=== PATIENT | female | born 1995 | race African-American/Black ===

== ENCOUNTER 2017-04-11 05:19 | Inpatient (IN) | payer MEDICAID, OTHER ==
[~2017-04-11] VITALS: Ht 160 cm; Wt 70.0 kg
[2017-04-11] VITALS (11 sets, daily range): BP systolic 97–123; BP diastolic 51–75; PULSE 21–112; RESP 17–21; TEMP 97.6–98.3; O2SAT 97–100
[2017-04-11] MEDS ORDERED: LACTATED RINGER'S 1000 ML INJ 1,000 ML IV SCH ×2 (05:59→14:50)
[2017-04-11] MEDS ORDERED: LACTATED RINGER'S 1000 ML INJ 1,000 ML IV PRN (05:59)
[2017-04-11] MEDS ORDERED: LIDOCAINE HCL 1% 50 ML VIAL I-DERMAL PRN (06:00)
[2017-04-11] MEDS ORDERED: MINERAL OIL 10 ML VIAL TOPICAL PRN (06:00)
[2017-04-11] MEDS ORDERED: OXYTOCIN 30 UNITS-500ML PREMIX 500 ML IV ONE ×2 (06:00→10:30)
[2017-04-11] MEDS ORDERED: SODIUM CHLORID 0.9% 500 ML INJ 500 ML IV PRN (06:00)
[2017-04-11] MEDS ORDERED: CITRIC ACID-SODIUM CITRATE LIQ 30 ML UDC PO SCH (06:00)
[2017-04-11] MEDS ORDERED: LIDOCAINE HCL 1% 50 ML VIAL INFIL PRN (06:00)
--- NOTE | 2017-04-11 06:05 | HHI.HP ---
HPI Chief Complaint Contractions Date Seen: Apr 11, 2017 Time Seen: 05:55 Travel History International Travel<30 Days: No Contact w/Intl Traveler<30Days: No Known Affected Area: No History of Present Illness HPI Patient is 22-year-old black female at 38 weeks with little to no care. She had 2 visits in [place] and maybe one down here, she presents complaining contractions and presents to OB ED 9 cm dilated and incomplete breech presentation Weeks Gestation: 38 Para: 1 : 2 History Obstetric History Obstetric History One vaginal delivery Social History Alcohol Use: No Tobacco Use: No Substance Abuse: No Allergies-Medications (Allergen,Severity, Reaction): Uncoded Allergies: no known allergy (Allergy, Unknown, 04/11/17) Review of Systems General / Constitutional: No: Fever, Weight Gain, Chills, Other Eyes: No: Diploplia, Blurred Vision, Visual changes, Pain, Photophobia HENT: No: Headaches, Vertigo, Lightheadedness Cardiovascular: No: Irregular Rhythm, Chest Pain or Discomfort, Palpitations, Tachycardia, Syncope, Varicosities, Edema, Cyanosis Respiratory: No: Cough, Short of Breath, Other Gastrointestinal: No: Nausea, Vomiting, Diarrhea Genitourinary: No: Decreased Urinary Output, Oliguria Musculoskeletal: No: Limited ROM, Weakness, Cramping, Edema, Pain Skin: No Rash, No Itching, No Dryness, No Lumps, No Change in Pigmentation, No Change in Nails, No Alopecia, No Lesions Neurologic: No: Weakness, Dizziness, Syncope, Focal Abnormalities, Coordination Problem, Headache, Slurred Speech, Seizures Psychiatric: No: Depression, Suicidal Ideations, Homicidal Ideation Endocrine: No: Heat Intolerance, Cold Intolerance, Polydipsia, Polyuria, Other Physical Exam Narrative GENERAL: Well-nourished, well-developed patient. SKIN: Warm and dry. HEAD: Normocephalic and atraumatic. EYES: No scleral icterus. No injection or drainage. ENT: No nasal drainage noted. Mucous membranes pink. Airway patent. NECK: Supple, trachea midline. No JVD. CARDIOVASCULAR: Regular rate and rhythm without murmurs, gallops, or rubs. RESPIRATORY: Breath sounds equal bilaterally. No accessory muscle use. BREASTS: Bilateral exam showed no masses , no retractions, no nipple discharge. ABDOMEN/GI: Abdomen soft, non-tender, bowel sounds present, no rebound, no guarding Gravid to [38-] weeks size Fundal Height: [38-] GENITOURINARY: External Genitalia: intact and normal in appearance BUS glands: [-] Cervix: [9-] Dilatation: [9-] Effacement: [100-] Station: [-1] Presentation: [breech-] Membranes: [intact BBOW] Uterine Contractions: [-reg] FHT's: Category: [1-] Baseline: [133-] Reactive: [R-] Variability: [mod-] Decels: [none-] EXTREMITIES: No cyanosis or edema. BACK: Nontender without obvious deformity. No CVA tenderness. NEUROLOGICAL: Awake and alert. Motor and sensory grossly within normal limits. Five out of 5 muscle strength in all muscle groups. Normal speech. Caprini VTE Risk Assessment Caprini VTE Risk Assessment: No/Low Risk (score <= 1) Caprini Risk Assessment Model Point Value = 1 Point Value = 2 Point Value = 3 Point Value = 5 Age 41-60 Minor surgery BMI > 25 kg/m2 Swollen legs Varicose veins or History of unexplained or recurrent spontaneous Oral contraceptives or hormone replacement Sepsis (< 1 month) Serious lung disease, including pneumonia (< 1 month) Abnormal pulmonary function Acute myocardial infarction Congestive heart failure (< 1 month) History of inflammatory bowel disease Medical patient at bed rest Age 61-74 Arthroscopic surgery Major open surgery (> 45 min) Laparoscopic surgery (> 45 min) Malignancy Confined to bed (> 72 hours) Immobilizing plaster cast Central venous access Age >= 75 History of VTE Family history of VTE Factor V Leiden Prothrombin [id number] Lupus anticoagulant Anticardiolipin antibodies Elevated serum homocysteine Heparin-induced thrombocytopenia Other congenital or acquired thrombophilia Stroke (< 1 month) Elective arthroplasty Hip, pelvis, or leg fracture Acute spinal cord injury (< 1 month) Prophylaxis Regimen Total Risk Factor Score Risk Level Prophylaxis Regimen 0-1 Low Early ambulation 2 Moderate Order ONE of the following: *Sequential Compression Device (SCD) *Heparin 5000 units SQ BID 3-4 Higher Order ONE of the following medications: *Heparin 5000 units SQ TID *Enoxaparin/Lovenox 40 mg SQ daily (WT < 150 kg, CrCl > 30 mL/min) *Enoxaparin/Lovenox 30 mg SQ daily (WT < 150 kg, CrCl > 10-29 mL/min) *Enoxaparin/Lovenox 30 mg SQ BID (WT < 150 kg, CrCl > 30 mL/min) AND/OR *Sequential Compression Device (SCD) 5 or more Highest Order ONE of the following medications: *Heparin 5000 units SQ TID (Preferred with Epidurals) *Enoxaparin/Lovenox 40 mg SQ daily (WT < 150 kg, CrCl > 30 mL/min) *Enoxaparin/Lovenox 30 mg SQ daily (WT < 150 kg, CrCl > 10-29 mL/min) *Enoxaparin/Lovenox 30 mg SQ BID (WT < 150 kg, CrCl > 30 mL/min) AND *Sequential Compression Device (SCD) Data Data Orders Orders Ob (2e) Additional Admit Info (04/11/17 05:51) Admit To Inpatient (04/11/17 ) Vital Signs (Adult) .Per protocol (04/11/17 05:59) Heart (04/11/17 05:59) Amnioinfusion (04/11/17 05:59) Urinary Catheter Management .ONCE (04/11/17 05:59) Lactated Ringer's 1000 Ml Inj (Lr 1000 M (04/11/17 05:59) Lactated Ringer's 1000 Ml Inj (Lr 1000 M (04/11/17 05:59) Sodium Chlorid 0.9% 500 Ml Inj (Ns 500 M (04/11/17 06:00) Sodium Chlor 0.9% 1000 Ml Inj (Ns 1000 M (04/11/17 06:19) Lidocaine 1% Inj (50 Ml) (Xylocaine 1% I (04/11/17 06:00) Citric Acid-Sodium Citrate Liq (Bicitra (04/11/17 06:00) Fentanyl Inj (Fentanyl Inj) (04/11/17 06:00) Fentanyl Inj (Fentanyl Inj) (04/11/17 06:00) Complete Blood Count With Diff (04/11/17 05:59) Hold Clot (04/11/17 05:59) Abo/Rh Blood Type (04/11/17 05:59) Urinalysis - C+S If Indicated (04/11/17 05:59) Drug Screen, Random Urine (04/11/17 05:59) Resp Oxygen Non Rebreathe Mask (04/11/17 ) ^ Epidural / Intrathecal Infus (04/11/17 05:59) Oxytocin 30 Units-500ml Premix (Pitocin (04/11/17 06:00) Lidocaine 1% Inj (50 Ml) (Xylocaine 1% I (04/11/17 06:00) Light Mineral Oil (Muri-Lube Oil) (04/11/17 06:00) Specimen To Be Collected PRN (04/11/17 05:59) Specimen To Be Collected PRN (04/11/17 05:59) Assessment/Plan Assessment and Plan Is a 22-year-old white female at 38 weeks presents and precipitous labor with incomplete breech presentation. Ultrasound shows baby is breech with the head in the position not hyperextended and the baby is probably 7 pounds patient was given the option of a trial vaginal she wants to try and deliver vaginally Plan-proceed with vaginal breech delivery at term Seb Wakefield II, MD Apr 11, 2017 06:05
[2017-04-11 06:08] LABS: AUTOMATED NEUTROPHIL # 6.1 TH/MM3 (1.8-7.7); BASOPHIL % 0.4 % (0.0-2.0); EOSINOPHIL % 0.2 % (0.0-4.0); HEMATOCRIT 31.7 % (35.0-46.0); HEMOGLOBIN 10.4 GM/DL (11.6-15.3); MEAN CELL VOLUME 74.5 FL (80.0-100.0); MEAN CORPUSCULAR HEMOGLOBIN 24.5 PG (27.0-34.0); MEAN CORPUSCULAR HGB CONC 32.9 % (32.0-36.0); MEAN PLATELET VOLUME 8.4 FL (7.0-11.0); MONO % 9.7 % (0.0-8.0); MONOCYTE # 0.9 TH/MM3 (0-0.9); NEUT % 67.7 % (16.0-70.0); PLATELET COUNT 230 TH/MM3 (150-450); RED BLOOD COUNT 4.25 MIL/MM3 (4.00-5.30); RED CELL DISTRIBUTION WIDTH 16.3 % (11.6-17.2); WHITE BLOOD COUNT 8.9 TH/MM3 (4.0-11.0)
[2017-04-11] MEDS ORDERED: ceFAZolin INJ 1,000 MG VIAL ONE (06:11)
[2017-04-11] MEDS ORDERED: LIDOCAINE HCL 1% 50 ML VIAL ONE (06:13)
[2017-04-11] MEDS ORDERED: SODIUM CHLOR 0.9% 1000 ML INJ 1,000 ML IV PRN (06:19)
[2017-04-11 06:32] LABS: BILIRUBIN, URINE NEG (NEG); BLOOD, URINE SMALL (NEG); GLUCOSE,URINE NEG (NEG); KETONE, URINE NEG (NEG); MUCUS URINE FEW /lpf (OCC); NITRITE,URINE NEG (NEG); PH, URINE 6.5 (5.0-8.5); SQUAMOUS EPITHELIAL CELL URINE <1 /hpf (0-5); URINE COLOR YELLOW (YELLW/STRAW); URINE LEUKOCYTE ESTERASE NEG (NEG)
[2017-04-11] MEDS ORDERED: PREN1TAB45 PO (07:15)
[2017-04-11] MEDS ORDERED: OXYTOCIN 30 UNITS-500ML PREMIX 500 ML ONE ×2 (07:56→10:43)
[2017-04-11] MEDS ORDERED: MORPHINE SULFATE PF 5 MG/10 ML VIAL ONE (08:31)
[2017-04-11] MEDS ORDERED: EPIDURAL-DIPHENHYDRAMINE HCL 50 MG CAP PO PRN (09:00)
[2017-04-11] MEDS ORDERED: EPIDURAL-NALOXONE HCL 0.4 MG/ML AMP IV PUSH PRN (09:00)
[2017-04-11] MEDS ORDERED: EPIDURAL-DO NOT ADMINISTER ANTICOAGULANTS PRN (09:00)
[2017-04-11] MEDS ORDERED: EPIDURAL-DIPHENHYDRAMINE HCL 50 MG/ML VIAL IV PUSH PRN (09:00)
[2017-04-11] MEDS ORDERED: EPIDURAL-NO SYSTEMIC NARCOTICS PRN (09:00)
[2017-04-11] MEDS ORDERED: KETOROLAC TROMETHAMINE 60 MG/2 ML (IM) VIAL IM PRN (10:00)
[2017-04-11] MEDS ORDERED: SODIUM CHLORIDE 0.9% FLUSH 10 ML FLUSH IV FLUSH PRN (10:00)
[2017-04-11] MEDS ORDERED: ACETAMINOPHEN 325 MG TAB PO PRN (10:00)
[2017-04-11] MEDS ORDERED: ONDANSETRON HCL 4 MG/2 ML VIAL IV PUSH PRN (10:00)
[2017-04-11] MEDS ORDERED: SIMETHICONE 80 MG CHEWABLE TAB PO PRN (10:00)
--- NOTE | 2017-04-11 10:18 | MP ---
cc: EDOUARD BOOTH MD, KIRSTIN R. MD DATE OF SURGERY 04/11/2017 PREOPERATIVE DIAGNOSIS Intrauterine with incomplete breech presentation in active labor with a labor dystocia to malpresentation. POSTOPERATIVE DIAGNOSIS Intrauterine with incomplete breech presentation in active labor with a labor dystocia to malpresentation. PROCEDURE PERFORMED Primary low transverse section. SURGEON MD Ashu STONE DRILLER MD [place], [facility]. ANESTHESIA Spinal. PREOPERATIVE NOTE The patient is a 22-year-old black female, at 38 weeks with limited care who presents in active labor at 8 cm with an incomplete breech presentation. This was confirmed by ultrasound. The patient was counseled and chose trying to deliver vaginally. She was allowed to labor; however, even after spontaneous rupture of the membranes, she made very little progress. She remained 8 cm, and after contractions she would go to 9 to almost 10 cm but the baby never dropped in the pelvis and the cervix essentially never really changed for 2-1/2 hours. It was felt that there was a labor dystocia due to malpresentation with complete breech, a leg and foot in the vagina. As such, section was planned. PROCEDURE The patient was taken to the operating room and placed in the supine position on the operating room table. Adequate spinal anesthesia was administered. She was prepped and draped for abdominal surgery. A Pfannenstiel incision was made in the lower abdomen, carried to the fascia sharply, the fascia was taken off the rectus muscle and the rectus split in the midline. The peritoneal cavity was entered sharply. The bladder blade was placed in the lower edge of the incision and the visceral peritoneum was reflected off the lower uterine segment. A transverse hysterotomy was made and extended bluntly bilaterally. A breech was delivered from incomplete footling breech presentation without difficulty. The baby was delivered at 09:08, was a female, Apgars 8 and 0. The weight was 2725 grams. There were no complications. A loose nuchal cord. Delayed cord clamping was done and cord blood obtained. The placenta was manually extracted without difficulty. The uterus was exteriororized, the hysterotomy closed with a running layer of 0 chromic followed by imbricating suture of the same. The bladder was reapproximated with a running suture of 2-0 Vicryl. The uterus was elevated and blood suctioned from the cul-de-sac and gutters. The uterus was replaced in the peritoneal cavity. The parietal peritoneum was closed in a running layer of 2-0 Vicryl. The muscle was reapproximated with stick ties of chromic. The fascia was closed in a running layer of 0 Vicryl and the subcutaneous tissue was reapproximated with 3-0 plain catgut suture. The skin was closed with 3-0 Monocryl in a subcuticular stitch. Pressure dressing was applied after Steri-Strips. Estimated blood loss was 500 cc. There were no complications. Sponge, needle and instrument counts were correct x 2 and the patient went to Recovery in stable condition. MD KOBI Guzman/SSB /9:42 AM /9:47 AM
[2017-04-11 11:37] LABS: HEPATITIS A AB IGM NEGATIVE (NEGATIVE); HEPATITIS B CORE AB IGM NEGATIVE (NEGATIVE); HEPATITIS B SURFACE ANTIGEN NEGATIVE (NEGATIVE); HEPATITIS C AB IgG NEGATIVE (NEGATIVE)
[2017-04-11] MEDS ORDERED: LACTATED RINGER'S 1000 ML INJ 1,000 ML IV ONE (12:00)
[2017-04-11] MEDS ORDERED: ePHEDrine/NS 25 MG/5 ML SYRINGE IV ONE (12:00)
[2017-04-11] MEDS ORDERED: ONDANSETRON HCL 4 MG/2 ML VIAL IV ONE (12:00)
[2017-04-11] MEDS ORDERED: OXYTOCIN 10 UNIT/ML AMP IV ONE (12:00)
[2017-04-11] MEDS ORDERED: OXYTOCIN 30 UNITS-500ML PREMIX 500 ML IV PRN (20:00)
[2017-04-11] MEDS: IBUPROFEN 600 MG TAB PO PRN (20:36)
[2017-04-11] MEDS: oxyCODONE/ACETAMINOPHEN 5 MG/325 MG TAB PO PRN (20:36)
[2017-04-11] MEDS ORDERED: SODIUM CHLORIDE 0.9% FLUSH 10 ML FLUSH IV FLUSH SCH (21:00)
[2017-04-11] MEDS ORDERED: ZOLPIDEM TARTRATE 5 MG TAB PO PRN (21:00)
[2017-04-12] MEDS: IBUPROFEN 600 MG TAB PO PRN ×4 (02:46→20:11)
[2017-04-12] MEDS: oxyCODONE/ACETAMINOPHEN 5 MG/325 MG TAB PO PRN ×4 (02:47→20:11)
[2017-04-12] MEDS: DOCUSATE SODIUM 50 MG/SENNA 8.6 MG TAB PO PRN ×2 (02:47→20:11)
[2017-04-12 04:00] VITALS: BP 95/56; PULSE 97; RESP 18; TEMP 98.1; O2SAT 96
[2017-04-12 05:54] LABS: AUTOMATED NEUTROPHIL # 8.2 TH/MM3 (1.8-7.7); BASOPHIL % 0.1 % (0.0-2.0); EOSINOPHIL % 0.2 % (0.0-4.0); HEMATOCRIT 26.4 % (35.0-46.0); HEMOGLOBIN 8.7 GM/DL (11.6-15.3); LYMPH % 17.2 % (9.0-44.0); LYMPHOCYTE # 1.9 TH/MM3 (1.0-4.8); MEAN CELL VOLUME 74.9 FL (80.0-100.0); MEAN CORPUSCULAR HEMOGLOBIN 24.6 PG (27.0-34.0); MEAN CORPUSCULAR HGB CONC 32.9 % (32.0-36.0); MEAN PLATELET VOLUME 8.6 FL (7.0-11.0); MONO % 8.9 % (0.0-8.0); NEUT % 73.6 % (16.0-70.0); PLATELET COUNT 188 TH/MM3 (150-450); RED BLOOD COUNT 3.52 MIL/MM3 (4.00-5.30); RED CELL DISTRIBUTION WIDTH 16.5 % (11.6-17.2); WHITE BLOOD COUNT 11.1 TH/MM3 (4.0-11.0)
[2017-04-12 08:00] VITALS: BP 97/63; PULSE 86; RESP 16; TEMP 98.3
--- NOTE | 2017-04-12 08:27 | HHI.OB ---
Subjective Post Operative Day: 1 Remarks Patient is a 22-year-old delivered at 38 weeks and 1 day. Patient is day 1 after a primary section, following a trial of labor with failure to progress; incomplete breech presentation of fetus.. Patient's pain is well-controlled. Patient reports minimal bleeding. Patient reports eating and drinking without any nausea or vomiting. Patient has not passed gas or had a bowel movement. Patient denies chest pain and shortness of breath. Patient has been ambulating; she denies lower extremity pain. Patient has decided to breast-feed, which is going well. Patient has not yet decided on form of contraception. Objective Vitals/I&O Vital Signs Date Time Temp Pulse Resp B/P (MAP) Pulse Ox O2 Delivery O2 Flow Rate FiO2 04/12/17 04:00 98.1 97 18 95/56 (69) 96 04/11/17 23:36 98.2 18 99 04/11/17 23:36 78 97/51 (66) 04/11/17 20:00 97.9 112 20 119/69 (86) 97 04/11/17 16:00 98.2 102 18 102/75 (84) 04/11/17 12:00 83 18 120/72 (88) 04/11/17 12:00 97.6 04/11/17 11:31 98.3 04/11/17 11:30 98.3 04/11/17 11:00 85 17 123/67 (85) 100 04/11/17 10:45 102/59 (73) 04/11/17 10:45 98 20 100 04/11/17 10:30 21 100 04/11/17 10:30 95 98/53 (68) 04/11/17 10:15 108 18 107/52 (70) 100 04/11/17 10:00 112 04/11/17 10:00 98.2 21 21 100 04/11/17 10:00 108/60 (76) Result Diagram: 04/12/17 0517 Objective Remarks GENERAL: Well-nourished, well-developed patient. CARDIOVASCULAR: Regular rate and rhythm without murmurs, gallops, or rubs. RESPIRATORY: Breath sounds equal bilaterally. No accessory muscle use. ABDOMEN/GI: Abdomen soft, minimally tender, bowel sounds present. Incision: Pressure dressing present. Dry. Fundus: Firm, minimally tender at umbilicus. GENITOURINARY: Light to moderate bleeding. EXTREMITIES: No cyanosis or edema, non-tender, without signs of DVT. Medications and IVs Current Medications Medications (Trade) Dose Ordered Sig/Orville Route Start Time Stop Time Status Last Admin Lactated Ringer's 1,000 ml @ 3,000 mls/hr Q20M PRN IV 04/11/17 05:59 Sodium Chloride 1,000 ml @ 100 mls/hr Q10H PRN IV 04/11/17 06:19 (Xylocaine 1% Inj (50 ml)) 0.1 ml UNSCH X1 PRN I-DERMAL 04/11/17 06:00 04/14/17 05:59 (Bicitra Liq) 30 ml WELLFIELD TECHNICIAN PO 04/11/17 06:00 04/15/17 05:59 (fentaNYL INJ) 50 mcg Q1H PRN IV PUSH 04/11/17 06:00 (fentaNYL INJ) 100 mcg Q1H PRN IV PUSH 04/11/17 06:00 (Xylocaine 1% Inj (50 ml)) 10 ml UNSCH X1 PRN INFIL 04/11/17 06:00 04/13/17 05:59 04/11/17 06:38 (Muri-Lube Oil) 10 ml UNSCH PRN TOPICAL 04/11/17 06:00 Lactated Ringer's 1,000 ml @ 100 mls/hr Q10H IV 04/11/17 14:50 04/12/17 10:49 Oxytocin 500 ml @ 100 mls/hr UNSCH X1 PRN IV 04/11/17 20:00 04/12/17 19:59 (NS Flush) 2 ml BID IV FLUSH 04/11/17 21:00 (NS Flush) 2 ml UNSCH PRN IV FLUSH 04/11/17 10:00 (Mylicon Chew) 80 mg QID PRN PO 04/11/17 10:00 (Tylenol) 650 mg Q6H PRN PO 04/11/17 10:00 (Toradol Inj) 60 mg UNSCH X1 PRN IM 04/11/17 10:00 04/12/17 09:59 (Percocet 5-325 Mg) 1 tab Q4H PRN PO 04/11/17 10:00 04/12/17 02:47 (Percocet 5-325 Mg) 2 tab Q4H PRN PO 04/11/17 10:00 04/11/17 20:36 (Amber-Colace) 2 tab Q12H PRN PO 04/11/17 10:00 04/12/17 02:47 (Ambien) 5 mg HS PRN PO 04/11/17 21:00 (M-M-R Ii Inj) 0.5 ml ONCE ONCE SQ 04/12/17 16:00 04/12/17 16:01 (Boostrix Inj) 0.5 ml ONCE ONCE IM 04/12/17 16:00 04/12/17 16:01 (Zofran Inj) 4 mg Q6H PRN IV PUSH 04/11/17 10:00 (Motrin) 600 mg Q6H PRN PO 04/11/17 20:30 04/12/17 02:46 Miscellaneous Information NO SYSTEMIC NARCOTICS TO BE GIVEN FO... UNSCH PRN .XX 04/11/17 09:00 04/12/17 08:59 (Narcan Inj) 0.4 mg UNSCH PRN IV PUSH 04/11/17 09:00 04/12/17 08:59 (Benadryl Inj) 25 mg Q6H PRN IV PUSH 04/11/17 09:00 04/12/17 08:59 (Benadryl) 50 mg Q6H PRN PO 04/11/17 09:00 04/12/17 08:59 Miscellaneous Information ALL NURSING DEPARTMENTS UNSCH PRN .XX 04/11/17 09:00 04/12/17 08:59 Assessment/Plan Assessment and Plan Patient is a 22-year-old delivered at 38 weeks and 1 days. Patient is day 1 after a primary section, following a trial of labor with failure to progress; incomplete breech presentation of fetus. * Continue routine care. * Motrin and Percocet when necessary for pain. * Encourage OOB. * Pelvic rest for 6 weeks will need follow-up appointment at that time. * Follow-up 1 week post-discharge for incision check. * Contraception: not yet decided. * Anticipate discharge tomorrow or Monday. Patient discussed with OB hospitalist. Dior Augustine MD R1 Apr 12, 2017 08:27
[2017-04-12 12:00] VITALS: BP 93/71; PULSE 89; RESP 14; TEMP 98.2
[2017-04-12] MEDS ORDERED: DIPHTH/TETANUS/ACEL PERTUSSIS (BOOSTER) 0.5 ML VIAL/PFS IM ONE (16:00)
[2017-04-12] MEDS ORDERED: MEASLES, MUMPS, RUBELLA VACCINE 0.5 ML VIAL SQ ONE (16:00)
[2017-04-12 20:00] VITALS: BP 112/74; PULSE 84; RESP 18; TEMP 98.9
[2017-04-13] MEDS: oxyCODONE/ACETAMINOPHEN 5 MG/325 MG TAB PO PRN ×4 (00:13→17:52)
[2017-04-13] MEDS: IBUPROFEN 600 MG TAB PO PRN ×3 (05:39→17:52)
[2017-04-13 08:00] VITALS: BP 118/66; PULSE 89; RESP 18; TEMP 98.1
--- NOTE | 2017-04-13 08:06 | HHI.OB ---
Subjective Post Operative Day: 2 Remarks Patient is a 22-year-old delivered at 38 weeks and 1 day. Patient is day 2 after a primary , following a trial of labor with failure to progress; incomplete breech presentation of fetus. Patient's pain is well-controlled. Patient reports minimal to moderate bleeding. Patient reports eating and drinking without any nausea or vomiting. Patient has not passed gas or had a bowel movement. Patient denies chest pain and shortness of breath. Patient has been ambulating; she denies lower extremity pain. Patient has decided to breast-feed. Patient has not yet decided on form of contraception. Objective Vitals/I&O Vital Signs Date Time Temp Pulse Resp B/P (MAP) Pulse Ox O2 Delivery O2 Flow Rate FiO2 04/12/17 20:00 84 112/74 (87) 04/12/17 20:00 98.9 18 04/12/17 12:00 93/71 (78) 04/12/17 12:00 98.2 89 14 Result Diagram: 04/12/17 0517 Objective Remarks GENERAL: Well-nourished, well-developed patient. CARDIOVASCULAR: Regular rate and rhythm without murmurs, gallops, or rubs. RESPIRATORY: Breath sounds equal bilaterally. No accessory muscle use. ABDOMEN/GI: Abdomen soft, minimally tender, bowel sounds present. Incision: Clean. Dry. No signs of infection. Fundus: Firm, minimally tender at umbilicus. GENITOURINARY: Light to moderate bleeding. EXTREMITIES: No cyanosis or edema, non-tender, without signs of DVT. Medications and IVs Current Medications Medications (Trade) Dose Ordered Sig/Orville Route Start Time Stop Time Status Last Admin Lactated Ringer's 1,000 ml @ 3,000 mls/hr Q20M PRN IV 04/11/17 05:59 Sodium Chloride 1,000 ml @ 100 mls/hr Q10H PRN IV 04/11/17 06:19 (Xylocaine 1% Inj (50 ml)) 0.1 ml UNSCH X1 PRN I-DERMAL 04/11/17 06:00 04/14/17 05:59 (Bicitra Liq) 30 ml PIZZA BAKER PO 04/11/17 06:00 04/15/17 05:59 (fentaNYL INJ) 50 mcg Q1H PRN IV PUSH 04/11/17 06:00 (fentaNYL INJ) 100 mcg Q1H PRN IV PUSH 04/11/17 06:00 (Muri-Lube Oil) 10 ml UNSCH PRN TOPICAL 04/11/17 06:00 (NS Flush) 2 ml BID IV FLUSH 04/11/17 21:00 (NS Flush) 2 ml UNSCH PRN IV FLUSH 04/11/17 10:00 (Mylicon Chew) 80 mg QID PRN PO 04/11/17 10:00 (Tylenol) 650 mg Q6H PRN PO 04/11/17 10:00 (Percocet 5-325 Mg) 1 tab Q4H PRN PO 04/11/17 10:00 04/13/17 00:13 (Percocet 5-325 Mg) 2 tab Q4H PRN PO 04/11/17 10:00 04/13/17 05:39 (Amber-Colace) 2 tab Q12H PRN PO 04/11/17 10:00 04/12/17 20:11 (Ambien) 5 mg HS PRN PO 04/11/17 21:00 (Zofran Inj) 4 mg Q6H PRN IV PUSH 04/11/17 10:00 (Motrin) 600 mg Q6H PRN PO 04/11/17 20:30 04/13/17 05:39 Assessment/Plan Assessment and Plan Patient is a 22-year-old delivered at 38 weeks and 1 days. Patient is day 2 after a primary section, following a trial of labor with failure to progress; incomplete breech presentation of fetus. * Continue routine care. * Motrin and Percocet when necessary for pain. * Encourage OOB. * Pelvic rest for 6 weeks will need follow-up appointment at that time. * Follow-up 1 week post-discharge for incision check. * Contraception: not yet decided. * Anticipate discharge today or tomorrow. Patient discussed with OB hospitalist. Dior Augustine MD R1 Apr 13, 2017 08:06
[2017-04-13] MEDS: DOCUSATE SODIUM 50 MG/SENNA 8.6 MG TAB PO PRN (11:40)
[2017-04-13 20:00] VITALS: BP 123/59; PULSE 100; RESP 18; TEMP 100; O2SAT 97
[2017-04-14] MEDS: IBUPROFEN 600 MG TAB PO PRN (03:01)
[2017-04-14] MEDS: oxyCODONE/ACETAMINOPHEN 5 MG/325 MG TAB PO PRN (03:02)
[2017-04-14] MEDS ORDERED: IBUP-232 PO (07:09)
[2017-04-14] MEDS ORDERED: OXYC1TAB63 PO (07:09)
--- NOTE | 2017-04-14 07:10 | HHI.DCPOC ---
Discharge Care Plan Diagnosis: (1) delivery delivered Your Health Problems Are: delivery Report Symptoms to Your Doctor -Temperature above 100.5 degrees -Redness, of incision or excessive or foul smelling drainage -Unusual pain or calf pain -Increased vaginal bleeding -Painful or difficulty urinating -Feelings of extreme sadness or anxiety after 2 weeks Goals to Promote Your Health * To prevent worsening of your condition and complications * To maintain your health at the optimal level Directions to Meet Your Goals Take your medications as prescribed Follow your dietary instruction Follow activity as directed Ensure plenty of rest for recovery Drink fluids for hydration Keep your appointments as scheduled Take your immunizations and boosters as scheduled If your symptoms worsen call your PCP, if no PCP go to Urgent Care Center or Emergency Room Smoking is Dangerous to Your Health. Avoid second hand smoke Call the 24-hour crisis hotline for domestic abuse at Dior Augustine MD R1 Apr 14, 2017 07:10
--- NOTE | 2017-04-14 07:14 | HHI.OB ---
Subjective Post Operative Day: 3 Remarks Patient is a 22-year-old delivered at 38 weeks and 1 day. Patient is day 3 after a primary , following a trial of labor with failure to progress; incomplete breech presentation of fetus. Patient's pain is well-controlled. Patient reports minimal to moderate bleeding. Patient reports eating and drinking without any nausea or vomiting. Patient has passed gas but has not yet had a bowel movement. Patient denies chest pain and shortness of breath. Patient has been ambulating; she denies lower extremity pain. Patient has decided to breast-feed. Patient has not yet decided on form of contraception. Objective Vitals/I&O Vital Signs Date Time Temp Pulse Resp B/P (MAP) Pulse Ox O2 Delivery O2 Flow Rate FiO2 04/13/17 20:00 100.0 04/13/17 20:00 100 18 123/59 (80) 97 04/13/17 08:00 98.1 18 04/13/17 08:00 89 118/66 (83) Result Diagram: 04/12/17 0517 Objective Remarks GENERAL: Well-nourished, well-developed patient. CARDIOVASCULAR: Regular rate and rhythm without murmurs, gallops, or rubs. RESPIRATORY: Breath sounds equal bilaterally. No accessory muscle use. ABDOMEN/GI: Abdomen soft, minimally tender, bowel sounds present. Incision: Clean. Dry. No signs of infection. Fundus: Firm, minimally tender at umbilicus. GENITOURINARY: Light to moderate bleeding. EXTREMITIES: No cyanosis or edema, non-tender, without signs of DVT. Medications and IVs Current Medications Medications (Trade) Dose Ordered Sig/Orville Route Start Time Stop Time Status Last Admin Lactated Ringer's 1,000 ml @ 3,000 mls/hr Q20M PRN IV 04/11/17 05:59 Sodium Chloride 1,000 ml @ 100 mls/hr Q10H PRN IV 04/11/17 06:19 (Bicitra Liq) 30 ml LINE INSPECTOR PO 04/11/17 06:00 04/15/17 05:59 (fentaNYL INJ) 50 mcg Q1H PRN IV PUSH 04/11/17 06:00 (fentaNYL INJ) 100 mcg Q1H PRN IV PUSH 04/11/17 06:00 (Muri-Lube Oil) 10 ml UNSCH PRN TOPICAL 04/11/17 06:00 (NS Flush) 2 ml BID IV FLUSH 04/11/17 21:00 (NS Flush) 2 ml UNSCH PRN IV FLUSH 04/11/17 10:00 (Mylicon Chew) 80 mg QID PRN PO 04/11/17 10:00 (Tylenol) 650 mg Q6H PRN PO 04/11/17 10:00 (Percocet 5-325 Mg) 1 tab Q4H PRN PO 04/11/17 10:00 04/14/17 03:02 (Percocet 5-325 Mg) 2 tab Q4H PRN PO 04/11/17 10:00 04/13/17 05:39 (Amber-Colace) 2 tab Q12H PRN PO 04/11/17 10:00 04/13/17 11:40 (Ambien) 5 mg HS PRN PO 04/11/17 21:00 (Zofran Inj) 4 mg Q6H PRN IV PUSH 04/11/17 10:00 (Motrin) 600 mg Q6H PRN PO 04/11/17 20:30 04/14/17 03:01 Assessment/Plan Assessment and Plan Patient is a 22-year-old delivered at 38 weeks and 1 days. Patient is day 3 after a primary section, following a trial of labor with failure to progress; incomplete breech presentation of fetus. * Continue routine care. * Motrin and Percocet when necessary for pain. * Encourage OOB. * Pelvic rest for 6 weeks will need follow-up appointment at that time. * Follow-up 1 week post-discharge for incision check. * Contraception: not yet decided. * Anticipate discharge today. Patient discussed with OB hospitalist. Dior Augustine MD R1 Apr 14, 2017 07:14
[2017-04-14 08:00] VITALS: BP 107/68; PULSE 90; RESP 18; TEMP 98.4; O2SAT 95
[2017-04-14] MEDS ORDERED: FERR325T18 PO (08:03)
== END 2017-04-14 12:13 | disposition home or self-care (01) | DRG 766 ==
LOC: HOBED 05:19 → H2EB 05:52 → H1EA 11:40
PROVIDERS: ADMIT Obstetrics & Gynecology Maternal & Fetal Medicine; ATTEND Obstetrics & Gynecology Maternal & Fetal Medicine
PROC: 10D00Z1 Extraction of Products of Conception, Low, Open Approach (ICD-10-PCS; principal; 2017-04-11)
DX: O64.8XX0 Obstructed labor due to other malposition and malpresentation, not applicable or unspecified (principal); O62.2 Other uterine inertia; O62.3 Precipitate labor; O69.81X0 Labor and delivery complicated by cord around neck, without compression, not applicable or unspecified; Z37.0 Single live birth; Z3A.38 38 weeks gestation of pregnancy
CPT/HCPCS: 59025; 80074; 80307; 81001; 85025; 86592; 86703; 86762; 86900; 86901; J0690; J2274; J2405; J2590; J3010; J7120